=== PATIENT | male | born 1950 | race Caucasian/White ===

== ENCOUNTER → 2017-05-29 | Outpatient (CLI) | payer MEDICARE, OTHER ==
--- NOTE | 2017-05-29 23:40 | MR ---
EXAMINATION TYPE: MR cervical spine wo con DATE OF EXAM: 05/29/2017 COMPARISON: NONE HISTORY: Neck Pain x2 years TECHNIQUE: Multiplanar, multisequence images of the cervical spine were acquired. Findings Cervical vertebrae are fairly normal alignment. There is 2 mm anterior subluxation of C3 in relation to C4 and also C4 in relation to C5. There is moderate narrowing of the disc spaces at C5-6 C6-7. The re are small posterior disc bulges and herniation at C5-6 C6-7 C7-T1. There is developmentally adequa te spinal canal and no significant spinal stenosis. Spinal canal measures 9 to 10 mm. Brain stem is i ntact. There is no compression fracture. There is slight increased signal on the T2 and T1 images in the C6 vertebral body. I see no fracture line. This probably relates to a hemangioma. IMPRESSION: Degenerative minimal first-degree spondylolisthesis at C3-4 and C4-5. No spinal stenosis. Spondylotic changes in the lower cervical spine as above. C6 vertebral body probable hemangioma.
== END | disposition home or self-care (01) ==
LOC: RADMRIMAIN 17:37
PROVIDERS: ATTEND Orthopaedic Surgery Orthopaedic Surgery of the Spine
DX: M43.12 Spondylolisthesis, cervical region (principal); M47.812 Spondylosis without myelopathy or radiculopathy, cervical region
CPT/HCPCS: 72141

== ENCOUNTER 2020-08-26 07:19 | Day surgery (SDC) | payer MEDICARE, OTHER ==
[2020-08-24 15:55] VITALS: BMI 29.7
[~2020-08-26 07:19] MED LIST: LACTATED RINGERS 1,000 ML IV SCH; LIDOCAINE 1% (10MG/ML) FOR IV START INTRADERMA PRN
[2020-08-26 07:33] VITALS: RESP 16; TEMP 97.7
[2020-08-26] MEDS ORDERED: PROPOFOL 10 MG/ML 20 ML VIAL IV ONE (08:17)
--- NOTE | 2020-08-26 08:36 | P.PCN ---
Date of Procedure: 08/26/20 Procedure(s) Performed: BRIEF HISTORY: Patient is a 70-year-old pleasant white male scheduled for an elective colonoscopy as a part of screening for colorectal neoplasia. His last colonoscopy was 10 years ago. PROCEDURE PERFORMED: Colonoscopy with biopsy PREOPERATIVE DIAGNOSIS: Screening for colon cancer. IV sedation per Anesthesia. PROCEDURE: After informed consent was obtained, the patient, was brought into the endoscopy unit. IV sedation was administered by Anesthesia under continuous monitoring. Digital rectal examination was normal. Initially the Olympus CF-160 flexible video colonoscope was then inserted in the rectum, gradually advanced into the cecum without any difficulty. Careful examination was performed as the scope was gradually being withdrawn. Ileocecal valve and the appendiceal orifice were visualized and appeared normal. Prep was excellent. Mucosa of the cecum, ascending colon, appeared normal. In the transverse colon there was a 2-3 mm sessile polyp removed by cold biopsy. transverse colon, descending colon, sigmoid colon, and rectum appeared normal. Retroflexion was performed in the rectum and no lesions were seen. The patient tolerated the procedure well. IMPRESSION: 2-3 mm sessile polyp in the proximal transverse colon status post removal by cold biopsy. Rest of the colon appeared normal. RECOMMENDATIONS: Findings of this examination were discussed with the patient well as his family. He was advised to follow with the biopsy result. If the bi opsy shows an adenoma he can have a repeat colonoscopy in 5 years.
[2020-08-26 08:50] VITALS: BP 119/64; PULSE 62
== END 2020-08-26 09:08 | disposition home or self-care (01) ==
LOC: ORWHC2ENDO 07:19
PROVIDERS: ATTEND Internal Medicine Gastroenterology
DX: Z12.11 Encounter for screening for malignant neoplasm of colon (principal); K63.5 Polyp of colon; I10 Essential (primary) hypertension; K21.9 Gastro-esophageal reflux disease without esophagitis; E78.5 Hyperlipidemia, unspecified; Z79.899 Other long term (current) drug therapy
CPT/HCPCS: 88305; 45380; J2704

== ENCOUNTER → 2023-12-30 | Outpatient (CLI) | payer MEDICARE ==
--- NOTE | 2023-12-30 12:20 | US ---
EXAMINATION TYPE: US kidneys/renal and bladder DATE OF EXAM: 12/30/2023 COMPARISON: NONE CLINICAL INDICATION: Male, 73 years old with history of R94.4 ABNORMAL RESULTS OF KIDNEY; Abnormal re nal function EXAM MEASUREMENTS: Right Kidney: 9.9 x 4.9 x 5.3 cm Left Kidney: 10.0 x 5.0 x 5.0 cm Right Kidney: No evidence of hydro Left Kidney: No evidence of hydro, multiple small cysts, largest mid= 1.1 x 1.0 x 1.1 cm Bladder: wnl Bilateral Jets seen: No There is no evidence for hydronephrosis at this point in time. No nephrolithiasis is seen. No olaf s are identified. The urinary bladder is anechoic. Bilateral ureteral jets are seen. IMPRESSION: 1. No evidence for obstructive uropathy. 2. Multiple simple appearing left renal cyst. 3. Trabeculated bladder possibly due to underdistention.
== END | disposition home or self-care (01) ==
LOC: RADUSWWP 11:13
PROVIDERS: ATTEND Family Medicine
DX: N28.1 Cyst of kidney, acquired (principal); N32.89 Other specified disorders of bladder; R94.4 Abnormal results of kidney function studies
CPT/HCPCS: 76770